=== PATIENT | male | born 1945 | race Caucasian/White ===

== ENCOUNTER → 2016-07-31 | Outpatient (CLI) | payer OTHER ==
[~2016-07-31] MED LIST: ALBU1AER9 INH; ASCO500T16 PO; ASPI81TA28 PO; CLC100 PO; CYAN10005 PO; LVT/20 PO; OMEG10007 PO; TRAM-10 PO; VITA400C3 PO
--- NOTE | 2016-07-31 10:48 | DIAGNOSTIC IMAGING REPORT ---
PET/CT SKULL-THIGH CLINICAL HISTORY: PULMONARY NODULE prostate carcinoma COMPARISON STUDY: None FINDINGS: The patient was injected with 16 mCi of F 18 labeled FDG. Following the standard induction phase, PET/CT scanning is performed from the skull base to the upper thigh region. Activity within the neck is felt to be physiologic. There is pulmonary emphysema. There is an irregularly marginated bilobed right lower lobe pulmonary nodule measuring 34 x 13 mm. This is intensely FDG avid with SUV maximum of 6.3. The findings are consistent with a carcinoma. There is no pathologic debra activity within the chest. Within the abdomen and pelvis, there is physiologic urinary tract and bowel activity. There is mild increased activity within distal esophagus. This can be seen as a physiologic variant. There is no pathologic adrenal gland activity. There is no pathologic debra activity within the abdomen or pelvis. There are postsurgical changes of a prior prostatectomy. There is borderline rectal wall thickening. This is not significantly FDG avid. There are bilateral hydroceles There is no pathologic FDG skeletal uptake IMPRESSION: 1. FDG avid irregular marginated bilobed 34 x 13 mm right lower lobe pulmonary nodule, consistent with neoplasm 2. No evidence of FDG avid adenopathy 3. No evidence of metastatic disease Electronically signed by: Don Roman M.D. 07/31/2016 10:47 AM Dictated Date/Time: 07/31/2016 10:37 AM
== END | disposition home or self-care (01) ==
LOC: C.PET 07:48
PROVIDERS: ATTEND Internal Medicine Pulmonary Disease
DX: R91.1 Solitary pulmonary nodule (principal)

== ENCOUNTER → 2016-08-06 | Outpatient (CLI) | payer OTHER ==
[2016-08-06 16:19] LABS: ALLEN TEST POS (POS); ARTERIAL BLD GAS O2 SATURATION 96.3 % (90-95); ARTERIAL BLOOD GAS BASE EXCESS 2.3 mEq/L (-9-1.8); ARTERIAL BLOOD GAS HCO3 26 mmol/L (19-24); ARTERIAL BLOOD GAS PO2 83 mm/Hg (80-95); ARTERIAL BLOOD GAS pH 7.46 (7.35-7.45); O2 ADMINISTRATION ROOM AIR
[2016-08-06 16:27] LABS: BASO % 0.4 %; BASO ABS # 0.03 K/uL (0-0.2); COMPLETE YES; EOS % 1.8 %; HEMATOCRIT 42.9 % (42-52); IG% 0.3 %; LYMPH % 31.8 %; LYMPH ABS # 2.33 K/uL (1.2-3.4); MEAN CELL VOLUME 96.6 fL (80-100); MEAN CORPUSCULAR HGB CONC 35.2 g/dl (32-36); MEAN PLATELET VOLUME 9.2 fL (7.4-10.4); MONO % 9.7 %; PLATELET COUNT 250 K/uL (130-400); RED BLOOD COUNT 4.44 M/uL (4.7-6.1); WHITE BLOOD COUNT 7.33 K/uL (4.8-10.8)
== END | disposition home or self-care (01) ==
LOC: C.CPL 15:42
PROVIDERS: ATTEND Physician Assistant
DX: C34.90 Malignant neoplasm of unspecified part of unspecified bronchus or lung (principal); R91.8 Other nonspecific abnormal finding of lung field

== ENCOUNTER → 2016-08-08 | Outpatient (CLI) | payer OTHER ==
[~2016-08-08] MED LIST changes: -LVT/20 PO
--- NOTE | 2016-08-08 09:13 | DIAGNOSTIC IMAGING REPORT ---
CHEST CT WITHOUT CONTRAST CT DOSE: 205.07 mGycm HISTORY: Pulmonary nodules. TECHNIQUE: Multiaxial CT images of the chest were performed without contrast. COMPARISON: PET CT 07/31/2016. Outside hospital chest CT 07/13/2016. FINDINGS: Tiny nodular density within the right mainstem bronchus favors a small amount of mucoid material. Otherwise, the central airways are patent. Stable 5 mm nodule within the left lung apex. This is best seen on image 29 of 341. Stable 3 mm nodule within the lingula on image 192. Stable 3 mm subpleural nodule within the lingula on image 221. Stable 3 mm nodule within the left lower lobe on image 225. Moderate emphysema. No pneumothorax. No pleural effusions. Stable 3 mm nodule within the right upper lobe on image 130. Stable 3 mm right upper lobe nodule on image 149. Spiculated bilobed mass within the right lower lobe measuring 4.0 x 1.4 cm. This is similar to the prior study. This demonstrate a few small pleural extensions. No suspicious lytic or blastic osseous lesions. Indeterminate 1.7 cm hypodense lesion within the right hepatic dome. However, this may represent a hemangioma in comparison to the prior study. Multiple calcified splenic granulomas. Visualized adrenal glands are unremarkable. There is a small left-sided esophageal diverticulum best seen on image 35. This measures 1.4 cm. No mediastinal or hilar lymphadenopathy. Mild aneurysmal dilatation of the ascending aorta measuring 4 cm in diameter. IMPRESSION: 1. Spiculated bilobed 4.0 x 1.4 cm mass within the right lower lobe is again noted. 2. A few additional scattered subcentimeter indeterminate pulmonary nodules as described above. Follow-up is recommended to ensure stability. 3. Moderate emphysema. 4. An indeterminate 1.7 cm hypodense lesion within the right hepatic dome. However, this favors a hemangioma when compared to the prior study. 5. Small left-sided upper esophageal diverticulum. Electronically signed by: Kole Dill M.D. 08/08/2016 9:11 AM Dictated Date/Time: 08/08/2016 9:02 AM
--- NOTE | 2016-08-08 11:41 | DIAGNOSTIC IMAGING REPORT ---
NUCLEAR MEDICINE LUNG QUANTITATIVE HISTORY: Pre-op. R91.8 Pulmonary [id number] TECHNIQUE: Anterior, posterior, oblique, and lateral views of the chest were performed immediately following the intravenous ministration of 5.5 mCi of technetium 99 M MAA. COMPARISON STUDY: PET CT 07/31/2016. FINDINGS: Slightly heterogeneous perfusion within the lungs diffusely consistent with the patient's emphysema. The geometric mean for perfusion was approximately 53% within the left lung and 47% within the right lung. IMPRESSION: The geometric mean for perfusion was approximately 53% within the left lung and 47% within the right lung. Electronically signed by: Kole Dill M.D. 08/08/2016 11:39 AM Dictated Date/Time: 08/08/2016 11:37 AM
== END | disposition home or self-care (01) ==
LOC: C.CTS 08:22
PROVIDERS: ATTEND Surgery
DX: R91.8 Other nonspecific abnormal finding of lung field (principal); J43.9 Emphysema, unspecified; K76.9 Liver disease, unspecified

== ENCOUNTER → 2016-08-09 | Day surgery (SDC) | payer OTHER ==
[~2016-08-09] VITALS: Ht 177.8 cm; Wt 63.6 kg
[~2016-08-09] MED LIST changes: +ALBUTEROL 0.083% NEBU SOLN 3 ML VIAL INH PRN; +ATROPINE SULFATE 0.1 MG/ML 5ML SYR IV PRN; +CLEOCIN PHOS 300MG/2ML IV ONE; +EpHEDrine SULFATE 50MG/5ML SYR ONE; +EpHEDrine SULFATE INJ 50 MG/ML AMP IV PRN; +FENTANYL CITRATE INJ 50 MCG/1 ML 2 ML VIAL ONE; +GLYCOPYRROLATE INJ 0.2 MG/ML VIAL ONE; +HYDROmorphone INJ 2 MG/ML SYR/VIAL ONE; +LACTATED RINGER'S 1000ML 1,000 ML IV SCH; +LIDOCAINE HCL 2% 2 ML VIAL (20MG/ML) ONE; +MIDAZOLAM HCL 1 MG/ML 2ML VIAL ONE; +NALOXONE HCL 0.4 MG/1 ML VIAL/CARP IV PRN; +NEOSTIGMINE METHYLSULFATE 5 MG/5 ML SYR ONE; +ONDANSETRON INJ 2 MG/ML 2 ML VIAL IV PRN; +ONDANSETRON INJ 2 MG/ML 2 ML VIAL ONE; +PROMETHAZINE HCL INJ 12.5 MG in SODIUM CHLORIDE 0.9% 50ML 50 ML IV PRN; +PROPOFOL IV EMULSION 10 MG/ML 20 ML VIAL IV ONE; +ROCURONIUM BROMIDE 10 MG/ML 5 ML VIAL ONE
[2016-08-09 08:54] VITALS: BP 125/83; PULSE 83; TEMP 36.4; O2SAT 99; Ht 177.8 cm; Wt 63.6 kg
--- NOTE | 2016-08-09 09:41 | History & Physical Bridge Note ---
H&P Re-Evaluation Bridge Note: I have examined the patient, reviewed the History & Physical and in the interval since the performance of the History & Physical I have noted the following changes of clinical significance: No changes noted
--- NOTE | 2016-08-09 10:46 | Discharge Instructions ---
Discharge Instructions Date of Service Aug 09, 2016. Visit Reason for Visit: Pulmonary Nodules Discharge Discharge Diagnosis / Problem: Pulmonary Nodules Discharge Goals Goal(s): Learn about illness Activity Recommendations Activity Limitations: resume your previous activity (in 24 hours) Anesthesia . Post Anesthesia Instructions: If you have had General Anesthesia or IV Sedation: * Do not drive today. * Resume driving when surgeon permits. * Do not make important decisions or sign legal documents today. * Call surgeon for: 1. Temperature elevations greater than 101 degrees F. 2. Uncontrollable pain. 3. Excessive bleeding. 4. Persistent nausea and vomiting. 5. Medication intolerance (nausea, vomiting or rash). * For nausea and vomiting use only clear liquids such as: tea, soda, bouillon until nausea subsides, then gradually increase diet as tolerated. * If you have any concerns or questions, call your surgeon's office. If physician is unavailable and it is an emergency, call 911 or go to the nearest emergency room. . Instructions / Follow-Up Instructions / Follow-Up 1. You may cough up some blood. Call physician if excessive amount noted. 2. Office appointment with Dr. Saunders in 1-2 weeks. Office will call you with date and time of appointment. Diet Recommendations Recommended Home Diet: resume previous diet Procedures Procedures Performed: Endobronchial Ultrasound; Navigational Bronchoscopy with Biopsy and Fiducial Markers Pending Studies Studies pending at discharge: no Medical Emergencies . Who to Call and When: Medical Emergencies: If at any time you feel your situation is an emergency, please call 911 immediately. . Non-Emergent Contact Non-Emergency issues call your: Surgeon Call Non-Emergent contact if: you have a fever, your pain is not controlled . . "Provider Documentation" section prepared by Juan Manuel Loza.
--- NOTE | 2016-08-09 11:45 | DIAGNOSTIC IMAGING REPORT ---
CHEST 1 VIEW FRONTAL CLINICAL HISTORY: Navigational Bronch bronchoscopy TECHNIQUE: Image intensifier COMPARISON STUDY: None FINDINGS: Image intensifier for an navigational bronchoscopy IMPRESSION: Navigational bronchoscopy Electronically signed by: Manolo Dawn M.D. 08/09/2016 11:43 AM Dictated Date/Time: 08/09/2016 11:41 AM
--- NOTE | 2016-08-09 12:01 | DIAGNOSTIC IMAGING REPORT ---
CHEST ONE VIEW PORTABLE CLINICAL HISTORY: Status post bronchoscopy COMPARISON STUDY: Chest CT August 08, 2016. FINDINGS: This exam is compromised by suboptimal positioning. No pneumothorax is identified. The known right lower lobe lesion is not well visualized on this exam. Skinfolds project over the left hemithorax. IMPRESSION: Technically difficult exam. No pneumothorax identified status post bronchoscopy. Electronically signed by: Anthony Benson M.D. 08/09/2016 11:59 AM Dictated Date/Time: 08/09/2016 11:57 AM
--- NOTE | 2016-08-09 12:11 | Anesthesiology Progress Note ---
Anesthesia Post Op Note Date & Time Aug 09, 2016 at 12:10 Vital Signs Pain Intensity: 0 Vital Signs Past 12 Hours Date Time Temp Pulse Resp B/P Pulse Ox O2 Delivery O2 Flow Rate FiO2 08/09/16 12:00 36.3 61 16 119/74 95 Nasal Cannula 2 08/09/16 11:50 65 18 118/67 96 Mask 10 08/09/16 11:40 67 18 118/64 99 Mask 10 08/09/16 11:30 36.3 62 14 128/74 96 Mask 10 08/09/16 08:54 36.4 83 18 125/83 99 Room Air Notes Mental Status: alert / awake / arousable, participated in evaluation Pt Amnestic to Procedure: Yes Nausea / Vomiting: adequately controlled Pain: adequately controlled Airway Patency, RR, SpO2: stable & adequate BP & HR: stable & adequate Hydration State: stable & adequate Anesthetic Complications: no major complications apparent
[2016-08-09 12:23] VITALS: BP 115/62; PULSE 70; TEMP 36.3; O2SAT 96
--- NOTE | 2016-08-09 12:31 | OPERATIVE REPORT ---
DATE OF OPERATION: 08/09/2016 PREOPERATIVE DIAGNOSIS: Hypermetabolic right lower lobe mass. POSTOPERATIVE DIAGNOSIS: Same. PROCEDURES: 1. Endobronchial ultrasound with biopsy. 2. Electromagnetic navigational bronchoscopy with superDimension system. 3. Biopsy right lower lobe nodule. SURGEON: Dr. Saunders. WELL LOGGING CAPTAIN: Joey Navarro. His identification number is [id number]. INDICATIONS FOR PROCEDURE: Mr. Horan is a 71-year-old male, actually physically active and is working. He had a long history of cigarette smoking, but is noted to have a mass in his right lower lobe. This was hypermetabolic. He has no hypermetabolic adenopathy and has no mediastinal adenopathy. We attempted to make a diagnosis here because it is going to be difficult to wedge this out thoracoscopically. I would like some confirmation we are dealing with cancer before proceeding with a minimally invasive right lower lobectomy. We worked him up and it appears he will tolerate this. DESCRIPTION OF PROCEDURE: The patient brought to the operating room, laid in supine position. General anesthesia induced and endotracheal intubation was performed with a single lumen tube. The endobronchial ultrasound scope was placed. Starting on the contralateral side and once in the level 10 area and saw some lymph nodes which I biopsied and I got good lymph node tissue. However, the level 4 node was very small and I biopsied this several times, but did not feel that we got good tissue and the rapid onsite evaluation confirmed that we had very little in the way of tissue. I then biopsied level 7 area multiple times and again got very little in the way of any lymphatic tissue, and I really did not see much in the way of lymph nodes. I also biopsied the right level 10, but it was very small and again I was not surprised that we did not get lymphatic tissue back. It really was not a level 4 node to go after. We got very little bleeding with this. We irrigated out the bronchial tree and I saw no abnormalities endobronchially. I then removed the endobronchial ultrasound scope and switched them over to a regular bronchoscope. Again, it was noted there was no bleeding. Navigational probe was then placed and through a regular bronchoscope and we registered the airways. Then going down into the right lower lobe with the navigational probe, I got right out to the mass. We confirmed this with the radial ultrasound probe. I then biopsied this multiple times with the brush and needles with aspiration and then forceps. We did touch preps with the forceps specimens. I then repositioned the catheter, brought it through another airway and again had a different approach. I could see that we were well within this mass. Again, we did multiple needle biopsies, multiple brushings, and biopsy with forceps with touch preps. Again, we saw no evidence of cancer. We then did so washings. Really very little in the way of bleeding. He tolerated it quite well to remove the scope. I will see him back in the office next week to go over the permanent results. We may well offer him a minimally invasive right lower lobectomy. I attest to the content of the Intraoperative Record and any orders documented therein. Any exceptio ns are noted below.
[2016-08-09 12:53] VITALS: BP 101/68; PULSE 68; O2SAT 100
== END | disposition home or self-care (01) ==
LOC: C.ACU 08:19
PROVIDERS: ATTEND Surgery
DX: R91.1 Solitary pulmonary nodule (principal); Z98.890 Other specified postprocedural states; F17.200 Nicotine dependence, unspecified, uncomplicated

== ENCOUNTER → 2016-08-27 | Outpatient (CLI) | payer OTHER ==
[~2016-08-27] MED LIST changes: -ALBUTEROL 0.083% NEBU SOLN 3 ML VIAL INH PRN; -ATROPINE SULFATE 0.1 MG/ML 5ML SYR IV PRN; -CLEOCIN PHOS 300MG/2ML IV ONE; -EpHEDrine SULFATE 50MG/5ML SYR ONE; -EpHEDrine SULFATE INJ 50 MG/ML AMP IV PRN; -FENTANYL CITRATE INJ 50 MCG/1 ML 2 ML VIAL ONE; -GLYCOPYRROLATE INJ 0.2 MG/ML VIAL ONE; -HYDROmorphone INJ 2 MG/ML SYR/VIAL ONE; -LACTATED RINGER'S 1000ML 1,000 ML IV SCH; -LIDOCAINE HCL 2% 2 ML VIAL (20MG/ML) ONE; -MIDAZOLAM HCL 1 MG/ML 2ML VIAL ONE; -NALOXONE HCL 0.4 MG/1 ML VIAL/CARP IV PRN; -NEOSTIGMINE METHYLSULFATE 5 MG/5 ML SYR ONE; -ONDANSETRON INJ 2 MG/ML 2 ML VIAL IV PRN; -ONDANSETRON INJ 2 MG/ML 2 ML VIAL ONE; -PROMETHAZINE HCL INJ 12.5 MG in SODIUM CHLORIDE 0.9% 50ML 50 ML IV PRN; -PROPOFOL IV EMULSION 10 MG/ML 20 ML VIAL IV ONE; -ROCURONIUM BROMIDE 10 MG/ML 5 ML VIAL ONE
--- NOTE | 2016-08-27 11:59 | DIAGNOSTIC IMAGING REPORT ---
CHEST 2 VIEWS ROUTINE CLINICAL HISTORY: PULMONARY NODULES nodules COMPARISON STUDY: 08/09/2016 FINDINGS: Baseline emphysematous change. Chronic scarring of both hemidiaphragms. Right basilar mass described previously is less well-defined currently. Lungs otherwise appear clear. IMPRESSION: Bibasilar mass described previously is less well-defined currently. Baseline emphysematous change. Electronically signed by: Manolo Dawn M.D. 08/27/2016 11:58 AM Dictated Date/Time: 08/27/2016 11:56 AM
== END | disposition home or self-care (01) ==
LOC: C.RAD1850 11:41
PROVIDERS: ATTEND Surgery
DX: R91.8 Other nonspecific abnormal finding of lung field (principal); J43.9 Emphysema, unspecified

== ENCOUNTER 2016-09-04 06:57 | Inpatient (IN) | payer OTHER ==
[2016-09-03 17:23] VITALS: BMI 21.0
[2016-09-04] VITALS (8 sets, daily range): BP systolic 104–133; BP diastolic 61–73; PULSE 62–70; TEMP 35.8–36.6; O2SAT 91–97; Ht 177.8 cm; Wt 65.8 kg
[~2016-09-04] VITALS: Ht 177.8 cm; Wt 65.8 kg
[~2016-09-04 06:57] MED LIST changes: -CLC100 PO; +DEXAMETHASONE SOD INJ 4 MG/ML VIAL ONE; +FENTANYL CITRATE INJ 50 MCG/1 ML 2 ML VIAL ONE; +GLYCOPYRROLATE INJ 0.2 MG/ML VIAL ONE; +LACTATED RINGER'S 1000ML 1,000 ML IV SCH; +LIDOCAINE HCL 2% 2 ML VIAL (20MG/ML) ONE; +MIDAZOLAM HCL 1 MG/ML 2ML VIAL ONE; +NEOSTIGMINE METHYLSULFATE 5 MG/5 ML SYR ONE; +ONDANSETRON INJ 2 MG/ML 2 ML VIAL ONE; +PROPOFOL IV EMULSION 10 MG/ML 20 ML VIAL IV ONE; +ROCURONIUM BROMIDE 10 MG/ML 5 ML VIAL ONE; -TRAM-10 PO
[2016-09-04] MEDS ORDERED: SODIUM CHLORIDE 0.9% PF 50 ML VIAL ONE (07:56)
[2016-09-04] MEDS ORDERED: BUPIVACAINE LIPOSOME 1/3% 266 MG/20 ML VIAL INFIL ONE (07:57)
[2016-09-04] MEDS ORDERED: EpHEDrine SULFATE INJ 50 MG/ML AMP IV PRN (09:15)
[2016-09-04] MEDS ORDERED: FENTANYL CITRATE INJ 50 MCG/1 ML 2 ML VIAL IV PRN (09:15)
[2016-09-04] MEDS ORDERED: ATROPINE SULFATE 0.1 MG/ML 5ML SYR IV PRN (09:15)
[2016-09-04] MEDS ORDERED: HYDROmorphone INJ 1 MG/ML SYR IV PRN (09:15)
[2016-09-04] MEDS ORDERED: PROMETHAZINE HCL INJ 6.25 MG in SODIUM CHLORIDE 0.9% 50ML 50 ML IV PRN (09:15)
[2016-09-04] MEDS ORDERED: ONDANSETRON INJ 2 MG/ML 2 ML VIAL IV PRN ×2 (09:15→11:45)
[2016-09-04] MEDS ORDERED: EpHEDrine SULFATE INJ 50 MG/ML AMP ONE (09:29)
[2016-09-04] MEDS ORDERED: PHENYLEPHRINE HCL INJ 10 MG/ML VIAL ONE (09:29)
[2016-09-04] MEDS ORDERED: SURGICEL ABSORB HEMOSTAT 2IN X 14IN TOP ONE (10:08)
[2016-09-04] MEDS ORDERED: FENTANYL CITRATE INJ 50 MCG/1 ML 2 ML VIAL ONE (10:45)
[2016-09-04] MEDS ORDERED: FLUMAZENIL 0.1 MG/1 ML 10 ML VIAL IV ONE (10:45)
[2016-09-04] MEDS ORDERED: ROCURONIUM BROMIDE 10 MG/ML 5 ML VIAL ONE (10:47)
[2016-09-04] MEDS ORDERED: D5W AND 1/2NSS 1,000 ML IV SCH (11:41)
[2016-09-04] MEDS ORDERED: MoRPHine SULFATE 2 MG/ML CARP IV PRN (11:45)
--- NOTE | 2016-09-04 12:18 | DIAGNOSTIC IMAGING REPORT ---
CHEST ONE VIEW PORTABLE HISTORY: Right lower lobectomy. COMPARISON: Chest 08/27/2016. FINDINGS: Right-sided chest tube terminates within the right lung apex. There is a tiny right apical pneumothorax. Volume loss within the right hemithorax consistent with the recent lobectomy. Surgical clips within the right hilum. Gas-filled esophagus. Old, healed left-sided rib fractures. No new focal lung consolidations. No pleural effusions. The heart is stable in size. IMPRESSION: Postoperative changes within the right hemithorax with a right-sided chest tube and tiny right apical pneumothorax. Electronically signed by: Kole Dill M.D. 09/04/2016 12:16 PM Dictated Date/Time: 09/04/2016 12:15 PM
--- NOTE | 2016-09-04 13:28 | Anesthesiology Progress Note ---
Anesthesia Post Op Note Date & Time September 04, 2016 at 13:28 Vital Signs Pain Intensity: 2 Vital Signs Past 12 Hours Date Time Temp Pulse Resp B/P Pulse Ox O2 Delivery O2 Flow Rate FiO2 09/04/16 13:15 63 20 129/67 93 Nasal Cannula 2 09/04/16 13:00 63 22 122/81 93 Nasal Cannula 2 09/04/16 12:45 61 19 130/71 93 Nasal Cannula 2 09/04/16 12:35 36.2 63 23 133/77 92 Nasal Cannula 2 09/04/16 12:25 62 17 133/68 95 Nasal Cannula 2 09/04/16 12:15 63 15 140/79 97 Nasal Cannula 4 09/04/16 12:05 64 16 129/81 98 Nasal Cannula 4 09/04/16 11:55 36.0 67 16 134/77 98 Mask 10 09/04/16 07:39 36.5 63 18 130/73 96 Room Air Notes Mental Status: alert / awake / arousable, participated in evaluation Pt Amnestic to Procedure: Yes Nausea / Vomiting: adequately controlled Pain: adequately controlled Airway Patency, RR, SpO2: stable & adequate BP & HR: stable & adequate Hydration State: stable & adequate Anesthetic Complications: no major complications apparent
--- NOTE | 2016-09-04 13:52 | OPERATIVE REPORT ---
DATE OF OPERATION: 09/04/2016 PREOPERATIVE DIAGNOSIS: Hypermetabolic mass, right lower lobe. POSTOPERATIVE DIAGNOSIS: Squamous cell carcinoma, right lower lobe. PROCEDURES: 1. Thoracoscopic right lower lobectomy. 2. Mediastinal lymphadenectomy. SURGEON: Dr. Saunders. WASTE ELIMINATION: Juan Manuel Loza PA-C. ANESTHESIA: General anesthesia with endotracheal intubation with double lumen tube. 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 He had a hypermetabolic mass in his right lower lobe. Even though he had compromised lung function, I felt that a lobectomy could be offered. It was not in a good location for a wedge resection, so we went into this case with no diagnosis. On 09/04/2016 the patient was brought to the operating room and underwent uncomplicated thoracoscopic right lower lobectomy. We had negligible blood loss. Frozen section showed this to be a squamous cell carcinoma. We had clean margins. I did a full lymph node dissection. He tolerated it well. OPERATION AND FINDINGS: PROCEDURE: The patient was brought to the operating room and laid in supine position. General anesthesia was induced and endotracheal intubation was performed with a double lumen tube. The patient was then turned in the left lateral decubitus position, his right chest was prepped and draped in usual sterile fashion. After appropriate timeout had been called and antibiotics have been given 3 small incisions were made. One incision was made just anterior and one interspace below the scapular tip. A 5 mm port was placed and CO2 insufflated. A 5 mm scope was placed and upon evaluation we could see there really were no adhesions. His fissures were almost complete. I placed a 3 cm working channel about the fourth interspace anterior to the latissimus dorsi muscle and another about the 7th interspace anteriorly. I then switched over to a 30 degree 10 mm scope. I then took down the posterior attachments and dissected and took down the inferior pulmonary ligament and then removed the level 8, level 9, level 7 and level 10 nodes. Then attention was then turned anteriorly. The fissure was completed anteriorly anterior to the bronchus and the artery. I then dissected out the continuation pulmonary artery into the lower lobe just distal to the takeoff of the right middle lobe branches. The artery bifurcated just above this, so I dissected out both sides of the artery and fired an Endo-MALOU stapler. Prior to doing this, I had completed the posterior fissure with a stapler. After freeing this up, I then came from inferior and freed up the inferior pulmonary vein and fired an Endo-MALOU stapler across this. We then meticulously dissected out the bronchus until we were down below the takeoff of the middle lobe. This was easily visualized. The Endo-MALOU stapler was placed. After firing this, we then used an Endobag to remove the lobe. Exparel 266 mg (liposomal bupivacaine) was reconstituted in 60 mL total of saline. Under thoracoscopic guidance, it was then injected from the 2nd to the 11th rib. This was done without difficulty. While waiting for the frozen section, I dissected out the level 2 and level 4, as well as more level 10 nodes. There was no significant bleeding. Frozen section came back as squamous cell carcinoma with negative margins. A 24-Malagasy chest tube was placed in the inferior anterior incision and directed towards the apex, held in place heavy silk suture. 0 Vicryl was used to close the muscle layers of all 3 ports and then 4-0 Monocryl was used in a running subcuticular fashion to approximate the wound edges. The patient tolerated it well and was extubated in the room. I attest to the content of the Intraoperative Record and any orders documented therein. Any exceptio ns are noted below.
[2016-09-04] MEDS ORDERED: CEFAZOLIN IV 2,000 MG in DEXTROSE 5% 50ML 100 ML IV SCH (16:00)
[2016-09-04] MEDS: METOCLOPRAMIDE HCL INJ 5 MG/ML 2 ML VIAL IV. SCH ×2 (16:19→23:08)
[2016-09-04] MEDS: CEFAZOLIN IV 2,000 MG in DEXTROSE 5% 50ML 50 ML IV SCH (16:19)
[2016-09-04] MEDS: KETOROLAC TROMETHAMINE 15 MG/ML VIAL IV. SCH (16:19)
[2016-09-04] MEDS: ACETAMINOPHEN IV 1,000 MG in EMPTY BAG 0 ML IV SCH (16:20)
[2016-09-04] MEDS: ALBUTEROL HFA 8 GM INHALER INH SCH ×2 (19:59→20:49)
[2016-09-04] MEDS: DOCUSATE SODIUM 100 MG CAP PO SCH (20:49)
[2016-09-04] MEDS ORDERED: NURSING VERBAL MED ORDER ONE (21:00)
[2016-09-05] VITALS (9 sets, daily range): BP systolic 102–138; BP diastolic 54–74; PULSE 59–67; TEMP 36.3–36.7; O2SAT 87–96
[2016-09-05] MEDS: CEFAZOLIN IV 2,000 MG in DEXTROSE 5% 50ML 50 ML IV SCH (00:20)
[2016-09-05] MEDS: KETOROLAC TROMETHAMINE 15 MG/ML VIAL IV. SCH ×4 (00:21→21:28)
[2016-09-05] MEDS: ACETAMINOPHEN IV 1,000 MG in EMPTY BAG 0 ML IV SCH ×2 (00:21→07:26)
[2016-09-05 07:19] LABS: BASO % 0.1 %; BASO ABS # 0.01 K/uL (0-0.2); COMPLETE YES; EOS % 0.6 %; HEMATOCRIT 38.3 % (42-52); IG% 0.2 %; LYMPH % 14.9 %; LYMPH ABS # 1.88 K/uL (1.2-3.4); MEAN CELL VOLUME 98.7 fL (80-100); MEAN CORPUSCULAR HGB CONC 33.4 g/dl (32-36); MONO % 10.2 %; PLATELET COUNT 231 K/uL (130-400); RED BLOOD COUNT 3.88 M/uL (4.7-6.1); WHITE BLOOD COUNT 12.63 K/uL (4.8-10.8)
[2016-09-05] MEDS: METOCLOPRAMIDE HCL INJ 5 MG/ML 2 ML VIAL IV. SCH (07:24)
[2016-09-05] MEDS: DOCUSATE SODIUM 100 MG CAP PO SCH ×2 (07:26→21:27)
[2016-09-05] MEDS: ASPIRIN 81 MG ECTAB PO SCH (07:26)
[2016-09-05] MEDS: ALBUTEROL HFA 8 GM INHALER INH SCH ×4 (07:27→21:27)
[2016-09-05 07:29] LABS: PARTIAL THROMBOPLASTIN RATIO 1.1; PROTHROMBIN TIME (PATIENT) 10.2 SECONDS (9.0-12.0)
--- NOTE | 2016-09-05 07:36 | DIAGNOSTIC IMAGING REPORT ---
CHEST ONE VIEW PORTABLE HISTORY: Postop. Right lower lobectomy. COMPARISON: Chest 09/04/2016. FINDINGS: Right-sided chest tube remains in the right lung apex. Tiny right apical pneumothorax persists. This remains unchanged. Right chest wall subcutaneous emphysema has progressed. Postoperative changes at the right hilum. Old, healed left rib fractures. No evidence for pulmonary edema. Increased markings within the right medial lung base may be due to atelectasis. Otherwise, the lungs are clear. The cardiac silhouette is stable in size. Gas-filled esophagus has slightly improved. IMPRESSION: No change in the tiny right apical pneumothorax. Right-sided chest tube remains unchanged in position. Increase in the right chest wall subcutaneous emphysema. Electronically signed by: Kole Dill M.D. 09/05/2016 7:35 AM Dictated Date/Time: 09/05/2016 7:33 AM
[2016-09-05 07:48] LABS: BUN/CREATININE RATIO 16.2 (10-20); CALCIUM 8.2 mg/dl (8.5-10.1); CREATININE 0.87 mg/dl (0.60-1.40); POTASSIUM 3.9 mmol/L (3.5-5.1)
--- NOTE | 2016-09-05 08:26 | Anesthesiology Progress Note ---
Anesthesia Post Op Note Date & Time September 05, 2016 at 08:25 Vital Signs Pain Intensity: 3.0 Vital Signs Past 12 Hours Date Time Temp Pulse Resp B/P Pulse Ox O2 Delivery O2 Flow Rate FiO2 09/05/16 08:10 95 Room Air 09/05/16 07:57 36.5 60 114/56 95 Room Air 09/05/16 06:34 92 Nasal Cannula 1.0 09/05/16 06:33 87 Room Air 09/05/16 03:36 36.5 62 18 102/54 96 Nasal Cannula 3.0 09/05/16 00:30 Nasal Cannula 2.0 09/04/16 22:55 36.5 70 16 104/61 93 Nasal Cannula 3.0 09/04/16 21:49 36.6 65 16 108/67 93 Nasal Cannula 3.0 Notes Mental Status: alert / awake / arousable, participated in evaluation Anesthetic Complications: no major complications apparent
[2016-09-05] MEDS: OXYCODONE HCL IR 5 MG TAB (IMMEDIATE RELEASE) PO PRN ×2 (12:40→19:14)
[2016-09-05] MEDS: ENOXAPARIN 40 MG/0.4 ML SYR SQ SCH (13:34)
--- NOTE | 2016-09-05 13:38 | SURGERY PROGRESS NOTE ---
DATE: 09/05/2016 DATE: 09/05/2016. SUBJECTIVE: Mr. Horan is seen today 1 day status post thoracoscopic right lower lobectomy. He has done very well. He has no air leak. He has very little drainage from his chest tube. He is on room air, ambulating in the hallway. His vital signs are stable. He has made good urine. His chest tube is draining very little and his x-ray looks very good. His labs all look very good day too. ASSESSMENT AND PLAN: Postoperative day #1, status post thoracoscopic right lower lobectomy for an apparent squamous cell carcinoma with mediastinal lymphadenectomy. He is looking very good. I will probably discharge him tomorrow. He is tolerating his diet and really has very little in the way of pain. I am quite happy with his postoperative course.
[2016-09-05] MEDS: ACETAMINOPHEN 325 MG TAB PO SCH ×2 (14:31→19:51)
[2016-09-06] MEDS: OXYCODONE HCL IR 5 MG TAB (IMMEDIATE RELEASE) PO PRN ×2 (01:33→08:52)
[2016-09-06] MEDS: ACETAMINOPHEN 325 MG TAB PO SCH ×3 (01:33→13:35)
[2016-09-06] MEDS: KETOROLAC TROMETHAMINE 15 MG/ML VIAL IV. SCH (05:37)
[2016-09-06 07:07] VITALS: BP 144/82; PULSE 64; TEMP 36.4; O2SAT 94
[2016-09-06] MEDS ORDERED: CLC100 PO (07:31)
--- NOTE | 2016-09-06 07:33 | Discharge Instructions ---
Discharge Instructions Date of Service September 06, 2016. Admission Reason for Admission: Right Lung Mass Discharge Discharge Diagnosis / Problem: Lung Cancer Discharge Goals Goal(s): Learn about illness Activity Recommendations Activity Limitations: as noted below Lifting Limitations: none . Instructions / Follow-Up Instructions / Follow-Up 1. Do not fly or SCUBA dive until cleared to do so by Dr. Saunders. 2. You may remove dressings and shower in 3 days. No tub baths. 3. Appointment with Dr. Saunders in 1-2 weeks. Office will call you with date and time of appointment. You will need a chest x-ray prior to appointment. Current Hospital Diet Patient's current hospital diet: Regular Diet Discharge Diet Recommended Diet: Regular Diet Procedures Procedures Performed: Right Video-assisted Thoracoscopy with Lower Lobectomy; Mediastinal Lymphadenectomy Pending Studies Studies pending at discharge: no Medical Emergencies . Who to Call and When: Medical Emergencies: If at any time you feel your situation is an emergency, please call 911 immediately. . Non-Emergent Contact Non-Emergency issues call your: Surgeon Call Non-Emergent contact if: temperature is above 101.5, your pain is not controlled, wound has increased drainage . "Provider Documentation" section prepared by Juan Manuel Loza. . VTE Core Measure Inpt VTE Proph given/why not?: Enoxaparin (Lovenox)SQ
[2016-09-06] MEDS ORDERED: TRAM-10 PO (07:56)
--- NOTE | 2016-09-06 08:21 | DIAGNOSTIC IMAGING REPORT ---
CHEST ONE VIEW PORTABLE CLINICAL HISTORY: chest tube removal COMPARISON STUDY: 09/05/2016 FINDINGS: The right-sided chest tube is been removed. There is extensive right-sided subcutaneous emphysema. There is elevation right hemidiaphragm. The heart is normal in size. There are minimal right midlung zone airspace opacities. There is a trace right apical pneumothorax. IMPRESSION: 1. Interval development of minimal right midlung zone airspace opacities 2. Possible trace right pleural effusion 3. Trace right apical pneumothorax status post removal of the right-sided chest tube 4. Right-sided subcutaneous emphysema Electronically signed by: Don Roman M.D. 09/06/2016 8:19 AM Dictated Date/Time: 09/06/2016 8:18 AM
[2016-09-06] MEDS: ASPIRIN 81 MG ECTAB PO SCH (08:47)
[2016-09-06] MEDS: ALBUTEROL HFA 8 GM INHALER INH SCH ×2 (08:47→13:34)
[2016-09-06] MEDS: DOCUSATE SODIUM 100 MG CAP PO SCH (08:47)
[2016-09-06] MEDS: ENOXAPARIN 40 MG/0.4 ML SYR SQ SCH (08:48)
--- NOTE | 2016-09-06 10:41 | DIAGNOSTIC IMAGING REPORT ---
CHEST ONE VIEW PORTABLE CLINICAL HISTORY: Pneumothorax. COMPARISON STUDY: Chest radiograph September 06, 2016 at 8:27 AM. FINDINGS: Subcutaneous gas within the right chest wall is noted. Hazy right midlung opacity is noted. There is mild right infrahilar opacity is well. A small right apical pneumothorax is similar to prior exam. IMPRESSION: 1. No significant change in a small right apical pneumothorax. 2. Mild right mid and lower lung airspace opacity which is unchanged. Electronically signed by: Anthony Benson M.D. 09/06/2016 10:39 AM Dictated Date/Time: 09/06/2016 10:35 AM
[2016-09-06 14:32] VITALS: BP 144/82; PULSE 64; TEMP 36.4; O2SAT 94
--- NOTE | 2016-09-06 22:11 | DISCHARGE SUMMARY ---
DISCHARGE DIAGNOSES: 1. Non-small cell lung carcinoma, right lower lobe: 2. History of cigarette smoking. 3. History of prostate cancer. 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 He is physically active. He does have compromised lung function, is an active smoker. I saw him because he had a mass in his right lower lobe which is hypermetabolic. I did an endobronchial ultrasound and a navigational bronchoscopy. We did not get a diagnosis; however, I felt this was cancer. It was not in a good position for needle biopsy or wedge resection. On 09/04/2016, the patient was brought to the operating room and underwent an uncomplicated thoracoscopic right lower lobectomy and mediastinal lymphadenectomy. Frozen section showed this was indeed non-small cell lung carcinoma. He tolerated it well with no air leak. We did not have the pathology back. He was watched on the floor and he did very well. His x-ray looked good. I removed his chest tube early this morning; however, he had a bit more subcutaneous emphysema, so I held him for a few hours and repeated it, this had not worsened and he did not really have a pneumothorax. He had no infiltrates or pleural effusions. He was discharged home today, on 09/06/2016. I will see him back in the office next week to go over his pathology results. He did very well and had a very satisfactory postoperative course.
== END 2016-09-06 15:00 | disposition home or self-care (01) | DRG 165 ==
LOC: ENRESERVDT → ENRESERVTM → C.ACU 06:57 → C.MSN 08:10
PROVIDERS: ADMIT Surgery; ATTEND Surgery
PROC: 07B74ZX Excision of Thorax Lymphatic, Percutaneous Endoscopic Approach, Diagnostic (ICD-10-PCS; principal; 2016-09-04 08:30)
PROC: 0BTF4ZZ Resection of Right Lower Lung Lobe, Percutaneous Endoscopic Approach (ICD-10-PCS; principal; 2016-09-04 08:30)
DX: C34.31 Malignant neoplasm of lower lobe, right bronchus or lung (principal); F17.200 Nicotine dependence, unspecified, uncomplicated; Z87.01 Personal history of pneumonia (recurrent); Z80.3 Family history of malignant neoplasm of breast; Z80.1 Family history of malignant neoplasm of trachea, bronchus and lung; Z79.899 Other long term (current) drug therapy; Z79.82 Long term (current) use of aspirin; J43.9 Emphysema, unspecified

== ENCOUNTER → 2016-09-11 | Outpatient (CLI) | payer OTHER ==
[~2016-09-11] MED LIST changes: +CLC100 PO; -DEXAMETHASONE SOD INJ 4 MG/ML VIAL ONE; -FENTANYL CITRATE INJ 50 MCG/1 ML 2 ML VIAL ONE; -GLYCOPYRROLATE INJ 0.2 MG/ML VIAL ONE; -LACTATED RINGER'S 1000ML 1,000 ML IV SCH; -LIDOCAINE HCL 2% 2 ML VIAL (20MG/ML) ONE; -MIDAZOLAM HCL 1 MG/ML 2ML VIAL ONE; -NEOSTIGMINE METHYLSULFATE 5 MG/5 ML SYR ONE; -ONDANSETRON INJ 2 MG/ML 2 ML VIAL ONE; -PROPOFOL IV EMULSION 10 MG/ML 20 ML VIAL IV ONE; -ROCURONIUM BROMIDE 10 MG/ML 5 ML VIAL ONE; +TRAM-10 PO
--- NOTE | 2016-09-11 11:39 | DIAGNOSTIC IMAGING REPORT ---
CHEST 2 VIEWS ROUTINE CLINICAL HISTORY: R91.1 Pulmonary [id number] COMPARISON STUDY: 09/06/2016 FINDINGS: The cardiac and mediastinal contours remain stable. The patient is hyperinflated. There are old rib fractures. There is a small right pleural effusion. There is decreasing subcutaneous emphysema on the right. There is improving peripheral right midlung zone airspace opacity. No pneumothorax is visualized.[ IMPRESSION: 1. No evidence of pneumothorax 2. Small right pleural effusion 3. Improving peripheral right midlung zone airspace opacity 4. Decreasing subcutaneous emphysema on the right Electronically signed by: Don Roman M.D. 09/11/2016 11:37 AM Dictated Date/Time: 09/11/2016 11:36 AM
== END | disposition home or self-care (01) ==
LOC: C.RAD1850 11:25
PROVIDERS: ATTEND Surgery
DX: R91.1 Solitary pulmonary nodule (principal); T79.7XXA Traumatic subcutaneous emphysema, initial encounter; X58.XXXA Exposure to other specified factors, initial encounter

== ENCOUNTER → 2016-09-26 | Outpatient (CLI) | payer OTHER ==
--- NOTE | 2016-09-26 11:58 | DIAGNOSTIC IMAGING REPORT ---
TWO VIEW CHEST CLINICAL HISTORY: Non-small cell lung cancer status post right lower lobe resection.. FINDINGS: PA and lateral chest radiographs are compared to study dated 09/11/2016 and correlated with chest CT dated 07/13/2016. The cardiomediastinal silhouette is unremarkable. There is atherosclerotic calcification of the thoracic aorta. Advanced emphysema and chronic interstitial thickening are similar to previous. There is volume loss in the right lung and parenchymal scarring consistent with right lower lobe resection. Pleural fluid is seen in the right lung base. No airspace consolidation is identified typical for pneumonia. There is no pneumothorax. The skeletal structures are osteopenic. There are healed left-sided rib fractures. Subcutaneous emphysema has resolved from previous. IMPRESSION: 1. Advanced emphysema and postoperative change from right lower lobe resection. 2. Pleural fluid at the right lung base is likely on a postoperative basis. No airspace consolidation is seen typical for pneumonia. Electronically signed by: Osvaldo Pardo M.D. 09/26/2016 11:57 AM Dictated Date/Time: 09/26/2016 11:54 AM
== END | disposition home or self-care (01) ==
LOC: C.RAD1850 11:13
PROVIDERS: ATTEND Physician Assistant
DX: C34.90 Malignant neoplasm of unspecified part of unspecified bronchus or lung (principal); J43.9 Emphysema, unspecified

== ENCOUNTER → 2016-10-15 | Outpatient (CLI) | payer OTHER ==
--- NOTE | 2016-10-15 08:45 | DIAGNOSTIC IMAGING REPORT ---
CHEST 2 VIEWS ROUTINE CLINICAL HISTORY: R91.8 Pulmonary [id number] COMPARISON STUDY: 09/26/2016 FINDINGS: The cardiac and mediastinal contours remain stable. Postsurgical changes are present on the right. There is right-sided volume loss. There is a small right pleural effusion. There is chronic blunting of the left lateral costophrenic angle. There are old left-sided rib fractures. There is no failure. There is no acute parenchymal consolidation.[ IMPRESSION: Postsurgical changes of a right lower lobectomy. Persistent small right pleural effusion. No acute findings. Electronically signed by: Don Roman M.D. 10/15/2016 8:44 AM Dictated Date/Time: 10/15/2016 8:35 AM
== END | disposition home or self-care (01) ==
LOC: C.RAD1850 08:07
PROVIDERS: ATTEND Surgery
DX: R91.8 Other nonspecific abnormal finding of lung field (principal); J90 Pleural effusion, not elsewhere classified

== ENCOUNTER → 2016-12-04 | Day surgery (SDC) | payer OTHER ==
[2016-11-25 10:02] VITALS: Ht 177.8 cm; Wt 65.8 kg
[~2016-12-04] VITALS: Ht 177.8 cm; Wt 65.8 kg
[~2016-12-04] MED LIST changes: -CLC100 PO; +LIDOCAINE HCL 2% 2 ML VIAL (20MG/ML) ONE; +PROPOFOL IV EMULSION 10 MG/ML 20 ML VIAL IV ONE; +SODIUM CHLORIDE 0.9% 500ML 500 ML IV ONE; -TRAM-10 PO
--- NOTE | 2016-12-04 09:17 | Endo History and Physical ---
History & Physical Date of Service: Dec 04, 2016. Chief Complaint: History of polyps Referring Physician: Dr. Lara History of Present Illness History of polyps, family history of colorectal cancer Past Surgical History Hx Cardiac Surgery: No Hx Internal Defibrillator: No Hx Pacemaker: No Hx Abdominal Surgery: No Hx Post-Op Nausea and Vomiting: No Hx Cancer Surgery: No Hx Thoracic Surgery: Yes (VATS) Hx Orthopedic: No Hx Urinary Tract Surgery: Yes (prostatectomy) Family History Polyp Social History Smoking Status: Light Tobacco Smoker Hx Substance Use: No Hx Alcohol Use: Yes (2-3 beers 3-4 times week) Allergies Coded Allergies: No Known Allergies (Verified , 12/04/16) Current Medications Reported Home Medications Medications Dose Route/Sig Max Daily Dose Days Date Category Aspirin Ec (Aspirin) 81 Mg Tab 81 Mg PO QAM 08/07/16 Reported Vitamin B-12 (Cyanocobalamin) 1,000 Mcg Tab 1,000 Mcg PO QAM 08/07/16 Reported Vitamin E 400 Iu (Vitamin E) 400 Unit Cap 400 Inter.unit PO QAM 06/25/12 Reported Ascorbic Acid 500 Mg Tab 500 Mg PO QAM 06/25/12 Reported Pelham-3 (Fish Oil) 1 Ea Cap 1 Cap PO QAM 06/25/12 Reported Proair Hfa (Albuterol) Aers 2 Puffs INH QID 06/25/12 Reported Vital Signs Weight (Kilograms): 65.8 Height (Feet): 5 Height (Inches): 10 Physical Exam General Appearance: WD/WN, no apparent distress Respiratory/Chest: Auscultation: breath sounds normal, no wheezing Cardiovascular: Heart Auscultation: RRR, no murmurs Abdomen: Inspection & Palpation: soft, no tenderness, guarding & rebound Assessment and Plan Surveillance colonoscopy today.
--- NOTE | 2016-12-04 10:00 | GI REPORT ---
Procedure Date: 12/04/2016 9:18 AM Procedure: Colonoscopy Indications: High risk colon cancer surveillance: Personal history of multiple (3 or more) adenomas including large TVA, Last colonoscopy: July 2014, Family history of colon cancer in multiple first-degree relatives (mother and sister) Medicines: Propofol per Anesthesia Complications: No immediate complications. Estimated blood loss: None. Estimated Blood Loss: Estimated blood loss: none. Procedure: Pre-Anesthesia Assessment: - Prior to the procedure, a History and Physical was performed, and patient medications, allergies and sensitivities were reviewed. The patient's tolerance of previous anesthesia was reviewed. - ASA Grade Assessment: III - A patient with severe systemic disease. After I obtained informed consent, the scope was passed under direct vision. Throughout the procedure, the patient's blood pressure, pulse, and oxygen saturations were monitored continuously. The Scope was introduced through the anus and advanced to the terminal ileum, with identification of the appendiceal orifice and IC valve. The colonoscopy was performed with ease. The patient tolerated the procedure well. The quality of the bowel preparation was excellent. The bowel preparation used was split dose MIralax. Findings: A tattoo was seen in the transverse colon, at the hepatic flexure and in the ascending colon. Multiple diverticula were found in the entire colon. Internal hemorrhoids were found during retroflexion. Impression: - A tattoo was seen in the transverse colon, at the hepatic flexure and in the ascending colon. - Diverticulosis in the entire examined colon. - Internal hemorrhoids. - No specimens collected. - The colon was otherwise normal to the terminal ileum with retroflexed views of the colon and terminal ileum. Recommendation: - Repeat colonoscopy in 3 years for surveillance. - Discharge patient to home (with escort). Leno Rick M.D. Leno Rick MD 12/04/2016 10:00:10 AM This report has been signed electronically. Note Initiated On: 12/04/2016 9:18 AM I attest to the content of the Intraoperative Record and orders documented therein, exceptions below
--- NOTE | 2016-12-04 10:06 | Discharge Instructions ---
Endoscopy Patient Instructions Date / Procedure(s) Performed Dec 04, 2016. Colonoscopy Allergy Information Coded Allergies: No Known Allergies (Verified , 12/04/16) Discharge Date / Findings Dec 04, 2016. Diverticulosis. Internal hemorrhoids. Medication Instructions Stopped Medication(s): ASPIRIN 12/03/16 Restart Stopped Medication(s): Restart all medications today. Provider Instructions Activity Restrictions - No exercising or heavy lifting for 24 hours. - Do not drink alcohol the day of the procedure. - Do not drive a car or operate machinery until the day after the procedure. - Do not make any important decisions or sign important papers in 24 hours after the procedure. Following Day: - Return to full activity which may include returning to work/school. Diet Start your diet with liquids and light foods (jello, soup, juice, toast). Then eat your usual diet if not nauseated. Treatment For Common After Affects For mild abdominal pain, bloating, or excessive gas: - Rest - Eat lightly - Lie on right side Follow-Up Information Follow-up with DR. ELDRIDGE as scheduled Repeat colonoscopy in three years. Anesthesia Information What You Should Know You have had a procedure that required some medicine to reduce anxiety and discomfort. This treatment is called moderate sedation. After receiving the treatment, you may be sleepy, but you will be able to breathe on your own. The effects of the treatment may last for several hours. Follow these instructions along with Activity/Diet recommendations noted above: * Do NOT do anything where dizziness or clumsiness would be dangerous. * Rest quietly at home today, then you can be up and about tomorrow. * Have a responsible person stay with you the rest of today. * You may have had an I.V. today. If so, you may take the dressing off later today. Recommendations Call your doctor if: * Trouble breathing * Continuous vomiting for more than 24 hours * Temperature above 101 degrees * Severe abdominal pain or bloating * Pain not relieved by pain medicine ordered * There is increased drainage or redness from any incision * A large amount of rectal bleeding greater than 2-3 tablespoons. (If you had a polyp/s removed or have hemorrhoids, a small amount of blood - from the rectum is to be expected.) * You have any unanswered questions or concerns. IN THE EVENT OF A SERIOUS EMERGENCY, GO TO THE NEAREST EMERGENCY ROOM Your discharge instructions were prepared by provider Leno Rick. Patient Instructions Signature Page Mickey Horan Patient (or Guardian) Signature/Date: I have read and understand the instructions given to me by my caregivers. Caregiver/RN/Doctor Signature/Date: The above-named patient and/or guardian has received patient instructions on this date. + Original Patient Signature Page (only) stays with chart. Please make copy for patient.
--- NOTE | 2016-12-04 10:17 | Anesthesiology Progress Note ---
Anesthesia Post Op Note Date & Time Dec 04, 2016 at 10:17 Vital Signs Pain Intensity: 0 Vital Signs Past 12 Hours Date Time Temp Pulse Resp B/P (MAP) Pulse Ox O2 Delivery O2 Flow Rate FiO2 12/04/16 10:04 59 16 121/48 (72) 98 Room Air 12/04/16 09:26 36.4 57 16 142/83 (102) 97 Room Air Notes Mental Status: alert / awake / arousable, participated in evaluation Pt Amnestic to Procedure: Yes Nausea / Vomiting: adequately controlled Pain: adequately controlled Airway Patency, RR, SpO2: stable & adequate BP & HR: stable & adequate Hydration State: stable & adequate Anesthetic Complications: no major complications apparent
[2016-12-04 10:34] VITALS: BP 151/83; PULSE 62; O2SAT 98
== END | disposition home or self-care (01) ==
LOC: C.GI 08:54
PROVIDERS: ATTEND Internal Medicine Gastroenterology
DX: Z12.11 Encounter for screening for malignant neoplasm of colon (principal); K57.30 Diverticulosis of large intestine without perforation or abscess without bleeding; K64.8 Other hemorrhoids; Z86.010 Personal history of colon polyps; Z80.0 Family history of malignant neoplasm of digestive organs; F17.200 Nicotine dependence, unspecified, uncomplicated; Z79.82 Long term (current) use of aspirin; Z79.899 Other long term (current) drug therapy

== ENCOUNTER → 2017-04-07 | Outpatient (CLI) | payer OTHER ==
[~2017-04-07] MED LIST changes: -LIDOCAINE HCL 2% 2 ML VIAL (20MG/ML) ONE; -PROPOFOL IV EMULSION 10 MG/ML 20 ML VIAL IV ONE; -SODIUM CHLORIDE 0.9% 500ML 500 ML IV ONE
--- NOTE | 2017-04-07 09:24 | DIAGNOSTIC IMAGING REPORT ---
(CHEST) THORAX WITHOUT CLINICAL HISTORY: 71 years-old Male presenting with C34.90 Non-small cell lung [id number]. TECHNIQUE: Multidetector CT imaging of the chest was performed without the use of intravenous contrast. IV contrast: None. A dose lowering technique was used consistent with the principles of ALARA (as low as reasonably achievable). COMPARISON: 08/08/2016. CT DOSE (mGy.cm): The estimated cumulative dose is 316.34 mGycm. FINDINGS: [employer] topogram: Flattening of the diaphragms. On soft tissue windows, normal thyroid and thoracic inlet. No axillary, supraclavicular, or mediastinal lymphadenopathy. Evaluation of the carlin limited without intravenous contrast. Atherosclerosis of the aorta. Coronary artery and aortic valve calcification. Normal heart size. No pericardial effusion. Interval development of a small right pleural effusion, which may be loculated. Multiple splenic calcifications consistent with prior granulomatous infection. Stable appearance of the hypodense lesion in the right hepatic dome (series 4 image 264), likely a benign hepatic lesion. On lung windows, postsurgical changes of right lower lobectomy with expansion of the right upper and middle lobes and slight architectural distortion at the lung base. Moderate emphysema. Bronchial wall thickening. Stable solid 5 mm nodule at the left apex (series 4 image 22). Stable solid 3 mm subpleural nodule in the lingula (series 4 image 216). Stable solid 2 to 3 mm peripheral nodule in the left lower lobe (series 4 image 212). Stable solid triangular peripheral 3 mm nodule in the right upper lobe (series 4 image 162). Similar-appearing peripheral solid 3 mm nodules in the right upper lobe also appears stable from prior allowing for slight change in configuration secondary to lobectomy. On bone windows, evidence of prior left rib fractures. Osteopenia. IMPRESSION: 1. Expected postsurgical changes of right lower lobectomy with small right pleural effusion and architectural distortion. Allowing for noncontrast technique, no lymphadenopathy. 2. Multifocal solid pulmonary nodules measuring up to 5 mm are stable from prior exam. Follow-up recommended. Given their stability, these are not suggestive of metastatic foci. 3. Moderate emphysema and bronchitis. 4. Osteopenia. Electronically signed by: Piero Campbell M.D. 04/07/2017 9:23 AM Dictated Date/Time: 04/07/2017 9:13 AM
== END | disposition home or self-care (01) ==
LOC: C.CTS 08:59
PROVIDERS: ATTEND Surgery
DX: C34.90 Malignant neoplasm of unspecified part of unspecified bronchus or lung (principal); Z98.890 Other specified postprocedural states; R91.8 Other nonspecific abnormal finding of lung field; J40 Bronchitis, not specified as acute or chronic; J43.9 Emphysema, unspecified; M85.80 Other specified disorders of bone density and structure, unspecified site

== ENCOUNTER → 2017-09-01 | Outpatient (CLI) | payer OTHER ==
--- NOTE | 2017-09-01 12:51 | DIAGNOSTIC IMAGING REPORT ---
(CHEST) THORAX WITHOUT CLINICAL HISTORY: 72 years-old Male presenting with LUNG CA, PULMONARY NODULE. TECHNIQUE: Multidetector CT imaging of the chest was performed without the use of intravenous contrast. IV contrast: None. A dose lowering technique was used consistent with the principles of ALARA (as low as reasonably achievable). COMPARISON: 04/07/2017. CT DOSE (mGy.cm): The estimated cumulative dose is 230.80 mGy.cm. FINDINGS: [employer] topogram: Unremarkable. On soft tissue windows, normal thyroid and thoracic inlet. Calcified left hilar mediastinal lymph nodes likely indicate prior granulomatous infection. Atherosclerosis of the aorta. Normal heart size. Coronary artery and aortic valve calcification. No pericardial or pleural effusion. Calcifications in the spleen likely indicate prior granulomatous infection. Small hiatal hernia may be present. On lung windows, postsurgical changes of right lower lobectomy. Moderate emphysema. Subsegmental bronchial debris noted in the right middle lobe. 3 mm solid peripheral nodule in the right upper lobe (series 4 image 153), unchanged. Multiple scattered calcified granulomata. Punctate peripheral nodule in the right upper lobe (series 4 image 77), unchanged. 3 mm subsolid peripheral right middle lobe nodule (series 4 image 218), indeterminate if new as respiratory motion artifact in this region on prior. Architectural distortion of the right lung base unchanged. Peripheral punctate nodule in the lingula (series 4 image 113), possibly new from prior. Multiple additional punctate nodules in the left lung. Central airways with layering debris in the left mainstem bronchus. On bone windows, old fracture deformity of the left posterior ribs suggested. Osteopenia. IMPRESSION: 1. Postsurgical changes of right lower lobectomy. No convincing evidence of intrathoracic metastatic disease or lymphadenopathy. 2. Emphysema. 3. Multiple small solid pulmonary nodules unchanged from prior. Possible new 3 mm subsolid right middle lobe nodule and new punctate lingular nodule. These can be reassessed on routine follow-up. 4. Debris in the left mainstem bronchus could suggest aspiration. 5. Evidence of old granulomatous infection. Electronically signed by: Piero Campbell M.D. 09/01/2017 12:50 PM Dictated Date/Time: 09/01/2017 12:39 PM
== END | disposition home or self-care (01) ==
LOC: C.CTS 12:17
PROVIDERS: ATTEND Surgery
DX: C34.90 Malignant neoplasm of unspecified part of unspecified bronchus or lung (principal); R91.1 Solitary pulmonary nodule